=== PATIENT | female | born 2005 | race Caucasian/White ===

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

== ENCOUNTER 2023-03-23 13:21 | Emergency (ER) | payer OTHER ==
[~2023-03-23] VITALS: Ht 167.6 cm; Wt 53.2 kg
[2023-03-23 13:57] LABS: HEMATOCRIT 36.8 % (36.0-47.0); HEMOGLOBIN 11.7 g/dl (12.0-15.5); MEAN CORPUSCULAR HEMOGLOBIN 28.3 pg (27.0-33.0); MEAN CORPUSCULAR HGB CONC 31.8 g/dl (32.0-36.5); MEAN CORPUSCULAR VOLUME 89.1 fl (80.0-96.0); PLATELET COUNT, AUTOMATED 269 10^3/uL (150-450); RED BLOOD COUNT 4.13 10^6/uL (4.00-5.40); WHITE BLOOD COUNT 7.2 10^3/uL (4.0-10.0)
[2023-03-23] MEDS ORDERED: HOME MED LIST COMPLETE! XX SCH (14:35)
[2023-03-23 14:40] LABS: ETHYL ALCOHOL (ETHANOL) < 0.003 % (0.000-0.010); HCG, SERUM QUALITATIVE NEGATIVE (NEGATIVE)
[2023-03-23 14:41] LABS: ACETAMINOPHEN LEVEL < 2.0 UG/ML (10.0-20.0); SALICYLATE LEVEL < 3.0 MG/DL (<30)
[2023-03-23 14:42] LABS: ALKALINE PHOSPHATASE 50 U/L (46-116); ALT/SGPT 12 U/L (7.0-40); AST/SGOT 10 U/L (<34); BILIRUBIN,DIRECT 0.3 MG/DL (<0.4); BILIRUBIN,TOTAL 0.8 MG/DL (0.3-1.2); BLOOD UREA NITROGEN 8 MG/DL (9-23); CALCIUM LEVEL 9.1 MG/DL (8.5-10.1); CARBON DIOXIDE LEVEL 24 MMOL/L (20-31); CHLORIDE LEVEL 107 MMOL/L (98-107); CREATININE FOR GFR 0.63 MG/DL (0.55-1.30); GLUCOSE, FASTING 101 MG/DL (60-100); SODIUM LEVEL 141 MMOL/L (136-145); TOTAL PROTEIN 7.7 G/DL (5.7-8.2)
[2023-03-23 14:44] LABS: THYROID STIMULATING HORMONE 0.536 uIU/ML (0.48-4.17)
[2023-03-23 16:06] VITALS: BP 108/68; TEMP 97.7; O2SAT 99
== END 2023-03-23 16:07 | disposition home or self-care (01) ==
LOC: M ED 13:21
DX: F32.A Depression, unspecified (principal)

== ENCOUNTER 2023-03-24 13:03 | Emergency (ER) | payer OTHER ==
[~2023-03-24] VITALS: Ht 167.6 cm; Wt 53.4 kg
[2023-03-24] MEDS ORDERED: HOME MED LIST COMPLETE! XX SCH (14:05)
[2023-03-24] MEDS ORDERED: MED REC IN PROGRESS XX SCH (14:05)
[2023-03-24 14:45] VITALS: BP 111/63; TEMP 98.7; O2SAT 98
== END 2023-03-24 14:48 | disposition home or self-care (01) ==
LOC: M ED 13:03
DX: F32.A Depression, unspecified (principal); F17.200 Nicotine dependence, unspecified, uncomplicated

== ENCOUNTER → 2023-05-31 | Outpatient (REF) | payer OTHER | LOC: M LAB REF 16:10 | PROVIDERS: ATTEND Physician Assistant | DX: J02.9 Acute pharyngitis, unspecified (principal) ==

== ENCOUNTER 2023-11-28 10:33 | Emergency (ER) | payer OTHER ==
[~2023-11-28] VITALS: Ht 167.6 cm; Wt 53.8 kg
[2023-11-28] MEDS: IBUPROFEN 600MG TAB PO ONE (10:49)
[2023-11-28 14:06] VITALS: BP 141/59; TEMP 98.3; O2SAT 99
== END 2023-11-28 14:08 | disposition home or self-care (01) ==
LOC: M ED 10:33
DX: S33.5XXA Sprain of ligaments of lumbar spine, initial encounter (principal); S30.0XXA Contusion of lower back and pelvis, initial encounter; Y92.9 Unspecified place or not applicable; Y93.9 Activity, unspecified; Y99.9 Unspecified external cause status

== ENCOUNTER → 2023-12-21 | Outpatient (REF) | payer OTHER | LOC: M LAB REF 12:24 | PROVIDERS: ATTEND Physician Assistant | DX: J02.9 Acute pharyngitis, unspecified (principal); B34.9 Viral infection, unspecified ==

== ENCOUNTER 2024-01-16 13:21 | Emergency (ER) | payer OTHER ==
[~2024-01-16] VITALS: Ht 167.6 cm; Wt 55.0 kg
[2024-01-16 13:22] VITALS: BP 139/74; TEMP 99; O2SAT 100
== END 2024-01-16 14:56 | disposition left against medical advice (07) ==
LOC: M ED 13:21
DX: Z53.21 Procedure and treatment not carried out due to patient leaving prior to being seen by health care provider (principal)

== ENCOUNTER 2024-01-16 21:20 | Emergency (ER) | payer OTHER ==
[~2024-01-16] VITALS: Ht 167.6 cm; Wt 54.1 kg
[2024-01-16 21:21] VITALS: BP 142/96; TEMP 99.4; O2SAT 100
== END 2024-01-17 02:22 | disposition left against medical advice (07) ==
LOC: M ED 21:20
DX: Z53.21 Procedure and treatment not carried out due to patient leaving prior to being seen by health care provider (principal)

== ENCOUNTER 2025-03-01 07:48 | Emergency (ER) | payer OTHER ==
[~2025-03-01] VITALS: Ht 167.6 cm; Wt 55.0 kg
[~2025-03-01 07:48] MED LIST changes: +AMOX500C
[2025-03-01 08:01] VITALS: TEMP 98.9
[2025-03-01 08:57] VITALS: BP 99/56; O2SAT 98
[2025-03-01] MEDS ORDERED: MAGICMW SSP (09:09)
== END 2025-03-01 09:17 | disposition home or self-care (01) ==
LOC: M ED 07:48
DX: B08.4 Enteroviral vesicular stomatitis with exanthem (principal); Z79.2 Long term (current) use of antibiotics